=== PATIENT | female | born 1975 | race Caucasian/White ===

== ENCOUNTER 2022-07-28 13:15 | Emergency (ER) | payer BC, MEDICAID, MEDICARE ==
[~2022-07-28] VITALS: Ht 160 cm; Wt 67.9 kg
[2022-07-28] MEDS ORDERED: ONDANSETRON 4MG 2ML VIAL IV ONE (14:10)
[2022-07-28] MEDS ORDERED: MORPHINE 2 MG/ML 1ML VIAL IV PRN (14:10)
[2022-07-28 15:02] LABS: BASO # 0.1 10^3/uL (0.0-0.2); BASO % 0.8 % (0.0-1.0); EOS # 0.2 10^3/uL (0.0-0.5); EOS % 2.7 % (0.0-3.0); HEMATOCRIT 43.6 % (36.0-47.0); LYMPH # 2.1 10^3/uL (1.5-5.0); LYMPH % 32.8 % (24.0-44.0); MEAN CORPUSCULAR HEMOGLOBIN 28.7 pg (27.0-33.0); MEAN CORPUSCULAR HGB CONC 32.1 g/dl (32.0-36.5); MEAN CORPUSCULAR VOLUME 89.5 fl (80.0-96.0); MONO # 0.4 10^3/uL (0.0-0.8); MONO % 5.5 % (2.0-8.0); NEUTROPHILS # 3.7 10^3/uL (1.5-8.5); NEUTROPHILS % 57.9 % (36.0-66.0); PLATELET COUNT, AUTOMATED 214 10^3/uL (150-450); RED BLOOD COUNT 4.87 10^6/uL (4.00-5.40); WHITE BLOOD COUNT 6.4 10^3/uL (4.0-10.0)
[2022-07-28 15:19] LABS: LIPASE 32 U/L (12-53)
[2022-07-28 15:22] LABS: ALBUMIN 4.1 G/DL (3.2-5.2); ALKALINE PHOSPHATASE 127 U/L (46-116); ALT/SGPT 31 U/L (7.0-40); AST/SGOT 29 U/L (<34); BILIRUBIN,DIRECT 0.1 MG/DL (<0.4); BILIRUBIN,TOTAL 0.3 MG/DL (0.3-1.2); BLOOD UREA NITROGEN 14 MG/DL (9-23); CALCIUM LEVEL 9.6 MG/DL (8.5-10.1); CARBON DIOXIDE LEVEL 31 MMOL/L (20-31); CHLORIDE LEVEL 107 MMOL/L (98-107); CREATININE FOR GFR 0.77 MG/DL (0.55-1.30); GLOMERULAR FILTRATION RATE > 60.0 (>58); GLUCOSE, FASTING 96 MG/DL (60-100); POTASSIUM SERUM 3.8 MMOL/L (3.5-5.1); SODIUM LEVEL 144 MMOL/L (136-145); TOTAL PROTEIN 6.7 G/DL (5.7-8.2)
[2022-07-28] MEDS ORDERED: PIPERACILLIN/TAZOBACTAM SOD 3.375 GM in D5W MINI-BAG PLUS 50 ML IV ONE (16:45)
[2022-07-28] MEDS ORDERED: CIPR500T39 PO (16:49)
[2022-07-28 18:08] VITALS: BP 119/76
== END 2022-07-28 18:10 | disposition home or self-care (01) ==
LOC: M ED 13:15
DX: N39.0 Urinary tract infection, site not specified (principal); N10 Acute pyelonephritis; Z87.442 Personal history of urinary calculi; Z98.84 Bariatric surgery status; Z88.6 Allergy status to analgesic agent; Z88.2 Allergy status to sulfonamides; Z88.5 Allergy status to narcotic agent; Z88.8 Allergy status to other drugs, medicaments and biological substances
CPT/HCPCS: 74176; 80048; 80076; 81001; 83605; 83690; 85025; 87040; 87086; 96365; 96366; 96367; 96375; 99284; J2405; J2543

== ENCOUNTER 2024-05-16 06:57 | Observation (INO) | payer MEDICARE ==
[~2024-05-16] VITALS: Ht 160 cm; Wt 74.8 kg
[2024-05-16] VITALS (7 sets, daily range): BP systolic 140–154; BP diastolic 90–98; TEMP 97.3–97.6; O2SAT 93–96
[~2024-05-16 06:57] MED LIST: CIPR500T39 PO; CLON0.5T2 PO; CYCL-707 PO; LEVO50TA5 PO; LEVOTAB10 PO; METO1TAB7 PO; PANT40TA29 PO; ROPI5TAB19 PO
[2024-05-16] MEDS ORDERED: ceFAZolin SOD 2 GM IV ONCE IV ONE (07:00)
[2024-05-16] MEDS ORDERED: LR 1,000 ML IV SCH (07:35)
[2024-05-16] MEDS ORDERED: MIDAZOLAM INJ 2MG/2ML VIAL As Ordered ONE (08:27)
[2024-05-16] MEDS ORDERED: LIDOCAINE 2% 100MG/5ML SDV (FOR ANES.) As Ordered ONE (08:27)
[2024-05-16] MEDS ORDERED: fentaNYL 250 MCG/5 ML INJECTION As Ordered ONE (08:27)
[2024-05-16] MEDS ORDERED: ROCURONIUM BROMIDE 50MG/5ML VIAL As Ordered ONE (08:27)
[2024-05-16] MEDS ORDERED: dexmedeTOMIDine (4MCG/ML)200MCG/50ML BTL (PRECEDEX) As Ordered ONE (08:27)
[2024-05-16] MEDS ORDERED: propofoL 200 MG/20 ML VIAL As Ordered ONE (08:27)
[2024-05-16] MEDS ORDERED: ONDANSETRON 4MG 2ML VIAL As Ordered ONE (08:27)
[2024-05-16] MEDS ORDERED: LACRILUBE (AKWA TEARS) OPHTH OINT 3.5GM As Ordered ONE (08:28)
[2024-05-16] MEDS ORDERED: HOME MED LIST COMPLETE! XX SCH (09:45)
[2024-05-16] MEDS: ceFAZolin SOD 2 GM in IV 1 EA IV ONE (10:10)
[2024-05-16] MEDS: HEPARIN SOD (PORCINE) 5000UNITS/ML 1ML VIAL/SYRINGE SQ ONE (10:15)
[2024-05-16] MEDS ORDERED: ACETAMINOPHEN 1000MG/100ML IV BAG As Ordered ONE (10:44)
[2024-05-16] MEDS ORDERED: SUGAMMADEX SODIUM 500 MG/5 ML VIAL (BRIDION) As Ordered ONE (11:00)
[2024-05-16] MEDS ORDERED: METOCLOPRAMIDE INJ 10MG/2ML VIAL As Ordered ONE (11:00)
[2024-05-16] MEDS ORDERED: HYDROmorphone HCL 2MG/ML 1ML VIAL As Ordered ONE (11:41)
[2024-05-16] MEDS: GENTAMICIN SULF 80MG/2ML VIAL As Ordered ONE (12:08)
[2024-05-16] MEDS: LR 1,000 ML IV SCH ×2 (13:20→15:16)
[2024-05-16] MEDS ORDERED: fentaNYL 100 MCG/2 ML INJECTION IV PRN (13:20)
[2024-05-16] MEDS: BUPivacaine LIPOSOME/PF 266MG 20ML VIAL (13.3MG/ML)(EXPAREL) As Ordered ONE (13:24)
[2024-05-16] MEDS ORDERED: clonazePAM 0.5 MG TAB PO PRN (14:00)
[2024-05-16] MEDS ORDERED: ONDANSETRON 4MG 2ML VIAL IV PRN (14:00)
[2024-05-16] MEDS ORDERED: ACETAMINOPHEN 325 MG TAB PO PRN (14:00)
[2024-05-16] MEDS: ONDANSETRON 4MG 2ML VIAL IV PRN (14:35)
[2024-05-16] MEDS: traMADol 50 MG TAB PO PRN (14:47)
[2024-05-16] MEDS: ceFAZolin SODIUM 2 GM in DEXTROSE 5% (D5W) ADV/MINI-BAG 50 ML IV SCH (17:29)
[2024-05-16] MEDS: PERCOCET 5MG/325MG TAB PO PRN (17:37)
[2024-05-16] MEDS: PANTOPRAZOLE 40MG TAB (PROTONIX) PO SCH (20:12)
[2024-05-17 05:01] VITALS: BP 117/75; TEMP 97.5; O2SAT 95
[2024-05-17] MEDS: LEVOTHYROXINE 50MCG TABLET (0.05MG) PO SCH (05:51)
[2024-05-17 08:00] VITALS: BP 136/94; TEMP 97.9; O2SAT 97
[2024-05-17 08:15] VITALS: BP 133/89
[2024-05-17] MEDS: METOPROLOL SUCC (TopROL XL) 50MG **XL** TAB PO SCH (08:15)
[2024-05-17] MEDS: HEPARIN SOD (PORCINE) 5000UNITS/ML 1ML VIAL/SYRINGE SQ ONE (10:08)
[2024-05-17 10:49] LABS: HEMATOCRIT 40.6 % (36.0-47.0); HEMOGLOBIN 13.7 g/dl (12.0-15.5); MEAN CORPUSCULAR HEMOGLOBIN 30.1 pg (27.0-33.0); MEAN CORPUSCULAR HGB CONC 33.7 g/dl (32.0-36.5); MEAN CORPUSCULAR VOLUME 89.2 fl (80.0-96.0); PLATELET COUNT, AUTOMATED 260 10^3/uL (150-450); RED BLOOD COUNT 4.55 10^6/uL (4.00-5.40)
[2024-05-17] MEDS ORDERED: PERCOCET PO (11:53)
== END 2024-05-17 13:25 | disposition home or self-care (01) ==
LOC: M SDC 06:57 → M MS5PR 06:58 → M SDC 16:54
PROVIDERS: ADMIT Plastic Surgery Surgery of the Hand; ATTEND Plastic Surgery Surgery of the Hand
DX: M79.3 Panniculitis, unspecified (principal); L90.5 Scar conditions and fibrosis of skin; Z98.84 Bariatric surgery status; Z88.8 Allergy status to other drugs, medicaments and biological substances; Z88.2 Allergy status to sulfonamides; Z88.5 Allergy status to narcotic agent; Z79.899 Other long term (current) drug therapy; F17.210 Nicotine dependence, cigarettes, uncomplicated
CPT/HCPCS: 11406; 15830; 36415; 85027; 88300; 96374; 96376; G0378; J0131; J0665; J0666; J0690; J1100; J1171; J1580; J2250; J2405; J2765; J3010